=== PATIENT | male | born 1990 | race Caucasian/White ===

== ENCOUNTER 2023-12-31 07:36 | Observation (INO) | payer BC ==
[~2023-12-31] VITALS: Ht 172.7 cm; Wt 97.1 kg
[2023-12-31] VITALS (7 sets, daily range): BP systolic 120–131; BP diastolic 66–74
[2023-12-31] MEDS ORDERED: ondansetron HCL 4 MG/2 ML VIAL IV ONE (08:00)
[2023-12-31] MEDS ORDERED: SODIUM CHLORIDE 0.9% 1,000 ML IV ONE (08:00)
[2023-12-31] MEDS ORDERED: HYDROmorphone HCL 1 MG/ML SYR IV PRN ×2 (08:00→16:15)
[2023-12-31 08:20] LABS: BASOPHILS 0.4 % (0-2); EOSINOPHILS 0.4 % (0-6); HEMATOCRIT 42.2 % (35.0-50.0); HEMOGLOBIN 14.3 g/dL (12.0-18.0); LYMPHOCYTES 8.7 % (24-44); MCH 30.5 (27-36); MCHC 33.9 g/dl (30-36); MONOCYTES 8.3 % (0-12); NEUTROPHILS 82.2 % (39-80); PLATELET COUNT 376 K/uL (140-440); RBC 4.69 M/ul (4.3-5.7)
[2023-12-31 08:49] LABS: ALBUMIN 3.7 g/dL (3.4-5.0); ALBUMIN/GLOBULIN RATIO 0.9 (1.1-2.4); ANION GAP 12.3 (7-21); BILIRUBIN, TOTAL 0.8 ng/dL (0.2-1.0); BUN/CREATININE RATIO 8.73 (6.0-28.6); CALCIUM 9.1 mg/dL (8.5-10.1); CREATININE, SERUM 1.26 mg/dL (0.70-1.30); POTASSIUM 4.3 mmol/L (3.5-5.1); PROTEIN, TOTAL 7.8 g/dL (6.4-8.2)
[2023-12-31] MEDS ORDERED: CIPROFLOXACIN/D5W 400 MG IV ONE (09:30)
[2023-12-31] MEDS ORDERED: ondansetron HCL 4 MG/2 ML VIAL IV PRN ×2 (09:45→16:15)
[2023-12-31] MEDS ORDERED: SODIUM CHLORIDE 0.9% 1,000 ML IV SCH (09:45)
[2023-12-31] MEDS ORDERED: CEFEPIME HCL/D5W 1 GM/100 ML PIGGYBACK IV SCH ×2 (10:00→14:00)
--- NOTE | 2023-12-31 11:14 | NUR ---
PT ARRIVES TO MED-SURG ROOM 123 AT 1111. BEDSIDE REPORT RECEIVED FROM KEVYN RENE. PT AWAKE AND ALERT, S/O AT BEDSIDE. IV IN PLACE TO RAC, C/D/I, NO REDNESS OR LEAKING NOTED, CEFEPIME INFUSION VIA PUMP. PT REPORTS 3/10 RLQ PAIN, ACHING, TOLERABLE AT THIS TIME, PAIN GOAL 4/10.
--- NOTE | 2023-12-31 13:21 | EKG ---
[facility] [address] [place] [place] [address] Signed Normal sinus rhythm Minimal voltage criteria for LVH, may be normal variant ( R in aVL ) Borderline ECG No previous ECGs available Confirmed by NIR SAVAGE MD ([id number]) on 12/31/2023 1:21:12 PM Electronically Signed By: NIR SAVAGE 12/31/23 1321 PATIENT NAME: AUDREYSARAHY Electrocardiogram DATE OF : [birth year] PHYSICIAN: NIR SAVAGE REPORT #: [id number] REPORT IS CONFIDENTIAL AND NOT TO BE RELEASED WITHOUT AUTHORIZATION
--- NOTE | 2023-12-31 13:31 | NUR ---
VISITED DURING SPIRITUAL CARE ROUNDS. PT DENIED IMMEDIATE NEEDS. NURSE ORTHO LISTENED EMPATHETICALLY, PROVIDED SUPPORTIVE PRESENCE, PRAYER. PT EXPRESSED GRATITUDE.
--- NOTE | 2023-12-31 13:35 | NUR ---
Spoke with pt. He states he lives in [place]
--- NOTE | 2023-12-31 14:35 | NUR ---
[place] CL[place] [facility] [place] DIVERTICULITIS GUIDELINE [facility] PPO OBS 01/03/24 @ 1041 ORDER MATCHES STATUS. AUTH PENDING. WILL SEND CLINICALS IF REQUESTED. PLAN TO DC TO HOME WHEN STABLE. 01/01/24
--- NOTE | 2023-12-31 15:20 | NUR ---
PT RESTS IN BED, AWAKE AND ALERT, ON CELL PHONE. DENIES ANY REQUESTS AT THIS TIME. CALL LIGHT IN REACH. PT ENCOURAGED TO USE CALL LIGHT FOR ANY NEEDS.
[2023-12-31] MEDS ORDERED: ENOXAPARIN SODIUM 40 MG/0.4 ML SYR SUB-Q SCH (16:04)
[2023-12-31] MEDS ORDERED: HYDROCODONE/ACETA 5/325 TAB PO PRN (16:15)
[2023-12-31] MEDS ORDERED: PROCHLORPERAZINE EDISYLATE 10 MG/2 ML VIAL IV PRN (16:15)
[2023-12-31] MEDS ORDERED: DEXTROSE 5% - LACTATED RINGERS 1,000 ML IV SCH (16:15)
[2023-12-31] MEDS ORDERED: ACETAMINOPHEN 500 MG TAB PO PRN (16:15)
--- NOTE | 2023-12-31 16:56 | NUR ---
PT AWAKE AND ALERT, REPORTS PAIN TOLERABLE. ICE APPLIED TO SITE. SCDS APPLIED TO BLE. DISCUSSED POC WITH PT. NO QUESTIONS AT THIS TIME.
--- NOTE | 2023-12-31 17:16 | NUR ---
PT SITS UP IN RECLINER, EATS DINNER, WISHES TO REMOVE O2 NC, ROOM AIR TRIAL STARTED. CALL LIGHT IN REACH. IS PROVIDED, EDUCATION ON USE OF IS PROVIDED, PT VERBALIZES UNDERSTANDING.
--- NOTE | 2023-12-31 19:10 | NUR ---
Pt back to bed after using the bathroom, voided, not measured. IVF infusing. pt denies abd pain or n/v. In bed watchng tv,
--- NOTE | 2023-12-31 20:10 | NUR ---
Sitting edge of bed, SCD's off at his request at this time. Alert andorineted, no c/o abd pain, ice to abd. IVF infusing w/o problems. cooperative with vitals and assessment. IS at bedside, return demonstration done several times, temp 99.9 o,
[2023-12-31] MEDS ORDERED: CEFEPIME HCL/D5W 2 GM/100 ML PIGGYBACK IV SCH (21:00)
[2024-01-01] VITALS (10 sets, daily range): BP systolic 113–138; BP diastolic 63–71
--- NOTE | 2024-01-01 00:45 | NUR ---
Resting, eyes closed, no distress, IVF infusing w/o problems, no c/o pain
--- NOTE | 2024-01-01 01:59 | NUR ---
RESTING, EYES CLOSED, NO S/SX PAIN OR REEP DISTRESS, IVF INFUSING W/O PROBLEMS, NO C/O ADVERSE REACTION TO ABX. AWAKENS EASILY. COOPERATIVE WITH VITALS AND SECOND ASSESSMENT, DENIES C/O ABD PAIN AT THIS TIME GOES BACK TO SLEEP RIGHT AWAY,
--- NOTE | 2024-01-01 03:25 | NUR ---
RESTING, EYES CLOSED, NO C/O ABD PAIN, NO N/V. IVF AND IV ABX INFUSING W/O PROBLEMS, TOLERATING WELL. TURNS AND REPOSITIONS SELF IN BED
--- NOTE | 2024-01-01 05:13 | NUR ---
Pt resting, eyes closed, on room air, turns and repositions self in bed. IVF/abx infusing. No c/o abd pain or n/v.
[2024-01-01 05:27] LABS: BASOPHILS 0.4 % (0-2); EOSINOPHILS 2.3 % (0-6); HEMATOCRIT 36.6 % (35.0-50.0); HEMOGLOBIN 12.5 g/dL (12.0-18.0); MCH 30.7 (27-36); MCHC 34.1 g/dl (30-36); MCV 89.9 fl (81-99); MONOCYTES 10.3 % (0-12); PLATELET COUNT 329 K/uL (140-440); RBC 4.08 M/ul (4.3-5.7); RDW 12.9 (10.5-15.0)
[2024-01-01 05:40] LABS: ANION GAP 6.3 (7-21); BUN/CREATININE RATIO 5.51 (6.0-28.6); CALCIUM 8.9 mg/dL (8.5-10.1); CREATININE, SERUM 1.27 mg/dL (0.70-1.30); MAGNESIUM 2.3 mg/dL (1.8-2.4); PHOSPHORUS, INORGANIC 3.5 mg/dL (2.5-4.9); POTASSIUM 4.3 mmol/L (3.5-5.1)
--- NOTE | 2024-01-01 06:48 | CONS ---
[facility] [address] [place], [place] [address] Signed DATE OF CONSULTATION: 12/31/2023 CHIEF COMPLAINT: Right lower quadrant abdominal pain. HISTORY OF PRESENT ILLNESS: Sourav is a 33-year-old gentleman, otherwise healthy, who works heavy construction/excavation. He developed right lower quadrant abdominal pain about four days ago. He has had some nausea. He did not think it was getting worse, but it was not getting any better. He came to the emergency room for evaluation. His white count was elevated and he is tender in the right lower quadrant. The CT scan showed what looks like a perforated cecal diverticulum with some extensive inflammatory changes. The radiologist states the appendix is normal. There is a trace amount of free air. Of course, the terminal ileum is secondarily inflamed. There is no abscess. He was given cefepime and Flagyl. I was asked to admit him as a local general surgeon on-call. PAST MEDICAL HISTORY: None. PAST SURGICAL HISTORY: None. SOCIAL HISTORY: He does not smoke or drink. He has one daughter, but he has a girlfriend who is . 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 His primary care provider had retired but Dr. Barrington Sullivan took over that practice. His mother is Reddy Call at [phone]. FAMILY HISTORY: Mom has diabetes. REVIEW OF SYSTEMS: He had 10 systems reviewed and he said he had no issues. There is no metal in his body. No previous broken bones. ALLERGIES: None. MEDICATIONS: None. PHYSICAL EXAMINATION: VITAL SIGNS: His blood pressure is 120/74, his heart rate is 90, respiratory rate is Electronically Signed By: KELLIE HICKMAN MD 01/01/24 0648 PATIENT NAME: SOURAV VENTURA CONSULTATION DATE OF : [birth year] REPORT #: [id number] PHYSICIAN: KELLIE HICKMAN MD PCP: NO PRIMARY CARE PHYSICIAN REPORT IS CONFIDENTIAL AND NOT TO BE RELEASED WITHOUT AUTHORIZATION [facility] [address] [place], [place] [address] Signed 21, his temperature is 98.1 he is 99% on room air. He is 5 feet 8 inches tall at 97 kg with a body mass index of 35. GENERAL: Sourav is a 33-year-old gentleman lying supine semi-recumbent in his hospital bed, watching TV. He does not appear systemically ill or toxic. LUNGS: Clear to auscultation bilaterally. HEART: Regular rate and rhythm without murmurs. ABDOMEN: Soft and flat but he is tender to moderate to deep palpation in the right lower quadrant. LABORATORY DATA: His white blood count 16.6, hemoglobin 14. Electrolytes are unremarkable. Lactic acid was 0.9. Liver function tests are negative. Albumin 3.7. His blood cultures are pending. RADIOGRAPHIC STUDIES: CT scan of abdomen and pelvis is reviewed along with the report. He has extensive inflammatory changes around the cecum attributed to cecal diverticulum with some trace amount air. There is no abscess. The radiologist states the appendix is normal. ASSESSMENT AND PLAN: Sourav is a 33-year-old gentleman who presents with what appears to be a perforated cecal diverticulum. He has been admitted, started on antibiotics and IV fluids. We will go ahead and add some clear liquids. We will repeat the blood work in the morning. Hopefully this will settle down. He understands that it could require surgery if it does not improve with antibiotics. He has expressed understanding and agrees with the above plan. Kellie Hickman MD ALB/MODL /[id number] cc: MD Kellie Rojas MD Copies: BARRINGTON SULLIVAN DMD Electronically Signed By: KELLIE HICKMAN MD 01/01/24 0648 PATIENT NAME: SOURAV VENTURA CONSULTATION DATE OF : [birth year] REPORT #: [id number] PHYSICIAN: KELLIE HICKMAN MD PCP: NO PRIMARY CARE PHYSICIAN REPORT IS CONFIDENTIAL AND NOT TO BE RELEASED WITHOUT AUTHORIZATION [facility] [address] [place] [id number] Signed KELLIE HICKMAN MD ~ Electronically Signed By: KELLIE HICKMAN MD 01/01/24 0648 PATIENT NAME: SOURAV VENTURA CONSULTATION DATE OF : [birth year] REPORT #: [id number] PHYSICIAN: KELLIE HICKMAN MD PCP: NO PRIMARY CARE PHYSICIAN REPORT IS CONFIDENTIAL AND NOT TO BE RELEASED WITHOUT AUTHORIZATION
--- NOTE | 2024-01-01 07:52 | NUR ---
Patient awake, alert and oriented x4. Patient denies abdominal pain and nausea. IV fluids/abx infusing at this time. Personal supplies and call light within reach.
--- NOTE | 2024-01-01 10:09 | NUR ---
VISITED DURING SPIRITUAL CARE ROUNDS. PT SITTING UP ON SIDE OF BED, EXPRESSED INCREASING LEVELS OF BOREDOM; DECLINED OFFERS OF PUZZLE BOOKS, COLORING BOOKS, PLAYING CARD, STATED "DOING OK." ENDING MACHINE OPERATOR PROVIDED SUPPORTIVE PRESENCE, HOSPITALITY, PRAYER. PT EXPRESSED GRATITUDE.
--- NOTE | 2024-01-01 10:56 | NUR ---
UR OBS REVIEW: [facility] [place] ONLY [facility] OBS 12/31/23 @ 0738 CLINICAL REQUEST RECVD,CLINICAL SENT TO [facility] DISCHARGE PENDING FURTHER REVIEW OF THE CT SCAN PER 01/02/24
--- NOTE | 2024-01-01 10:57 | NUR ---
THIS MORNING AFTER I DID HIS VITALS I ASKED HIM IS THERE ANYTHING ELSE HE NEEDS AND HE SAID YES SOME MORE ICE WATER. ALSO ASKED HIM IF HE WOULD LIKE TO TAKE A SHOWER TODAY HE SAID MAYBE. WILL CHECK BACK IN LATER.
--- NOTE | 2024-01-01 11:00 | NUR ---
Spoke with Sourav. He denies needs. Remains on clr liquid diet. Documentation from shows pt is improving. Pt plans on dc to home when cleared medically.
[2024-01-01 11:28] LABS: BILIRUBIN, URINE NEGATIVE (negative); BLOOD/HGB, URINE NEGATIVE (Negative); KETONE, URINE NEGATIVE (Negative); LEUK ESTERASE, URINE NEGATIVE (negative); NITRITE, URINE NEGATIVE (negative); PH, URINE 6.5 (5-7)
--- NOTE | 2024-01-01 15:06 | NUR ---
Patient awake, alert and oriented x4, no distress. Patient denies nausea/pain at this time. Abdomen is soft to light palpation, postive bowel tones x4 quadrants. Patient denies needs. IV fluids infusing per provider order.
--- NOTE | 2024-01-01 17:26 | NUR ---
Patient awake sitting up in bed, no distress. Family at bedside. Patient reports he is hungry for "real food", currently on clear liquid diet per provider. Jello and fresh water provided to patient at this time. Patient denies needs at this time. Personal supplies and call light within reach.
--- NOTE | 2024-01-01 19:29 | NUR ---
REPORT RECEIVED FROM DAY RN. PATIENT AMBULATING IN ROOM INDEPENDENTLY. IVF INFUSING WITH NO ISSUES OR CONCERNS. DENEIS ANY NEEDS AT THIS TIME. CALL LIGHT WITHIN REACH.
--- NOTE | 2024-01-01 21:43 | NUR ---
IV PUMP ALARMING. ABX INFUSSION COMPLETED. SCHEDULED ABX STARTED. IV SITE REMAIN PATIENT. LUNGS CTA, BOWEL TONES ACTIVE X 4. PATIENT DENIES ANY NAUSEA OR VOMITING. REPORTS HE HAD A BM THIS AM. DENIES ANY PAIN TO HIS ABDOMEN. FRESH ICE WATER GIVEN. VITALS STABLE. NO FURTHER NEEDS AT THIS TIME. CALL LIGHT WITHIN REACH.
--- NOTE | 2024-01-01 23:08 | NUR ---
PATIENT RESTING IN BED WITH EYES CLOSED. RESPIRATIONS EVEN AND UNLABORED. PATIENT LAYING ON HIS RIGHT SIDE. IVF INFUSING WITH NO ISSUES OR COCNERNS. CALL LIGHT WITHIN REACH.
--- NOTE | 2024-01-02 01:31 | NUR ---
PATIENT RESTING IN BED WITH EYES CLOSED. RESPIRATIONS EVEN AND UNLABORED. CALL LIGHT WITHIN REACH.
--- NOTE | 2024-01-02 03:30 | NUR ---
PATIENT RESTING IN BED WITH EYES CLOSED. RESPIRATIONS EVEN AND UNLABORED. CALL LIGHT WITHIN REACH.
[2024-01-02 05:31] VITALS: BP 123/66
--- NOTE | 2024-01-02 05:31 | NUR ---
PATIENT OUT OF BED AMBULATED TO BATHROOM, INDEPENDENT IN ROOM. VSS. BOWEL TONES ACTIVE X 4 QUADRANTS, DENIES ANY NAUSEA OR ABD PAIN THIS AM. REPORTS PASSING GAS. IVF INFUSING WITH NO ISSUES OR CONCERNS. FRESH ICE WATER GIVEN. CALL LIGHT WITHIN REACH.
[2024-01-02 05:32] VITALS: BP 123/66
--- NOTE | 2024-01-02 07:48 | NUR ---
Patient awake in bed, alert and oriented x4, no distress. Patient reports he is feeling much better today, no pain/nausea. Patient is aware Dr. Hollins has written orders for discharge.
--- NOTE | 2024-01-02 08:04 | DS ---
[facility] [address] [place], [place] [address] Signed ADMISSION DATE: 12/31/2023 DISCHARGE DATE: 01/02/2024 FINAL DIAGNOSIS: Cecal diverticulitis. PROCEDURES: CT scan of abdomen and pelvis. 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 He developed four days of right lower quadrant abdominal pain that was not improving. He finally came to the emergency room for evaluation. He had tenderness in the right lower quadrant with an elevated white blood cell count. A CT scan confirmed a cecal diverticulitis with a trace amount of air. The appendix was actually separate from this area and normal. There was no abscess. He had quite a bit of inflammation in the area. I actually reviewed that with our radiologist and myself and it is quite obvious the appendix is separate from his diverticular process. I have been asked to admit him as a general surgeon on-call. HOSPITAL COURSE: Sourav was admitted as above and was placed on clear liquid diet with IV fluids along with his cefepime and Flagyl. By the morning he had reduced his white count to normal. The pain in the right lower quadrant was almost gone. He was having plenty of urine output. By the next day, he had no pain whatsoever. He continued to tolerate his liquid diet. As expected, Sourav was anxious to be discharged and return to work. DISCHARGE PLANS AND MEDICATIONS: I brought [employer] brochure on diverticulitis. We looked at it page by page. I circled the sections relevant to him. I circled the cecum and explained that to him in detail. We also reviewed the need for a colonoscopy in the weeks ahead. He will come back in my office in about 10 to 14 days. We are going to give him a full 10 days of antibiotics to include Augmentin 500 mg one p.o. b.i.d. and Flagyl 500 mg one p.o. t.i.d. He can use Tylenol, ibuprofen or Aleve as needed for pain. This can be purchased [id number]. I reviewed with him a low fiber diet. He should do that for couple of weeks or so and then switch over to a regular diet after that. He said he is very anxious to return to work tomorrow as he gets paid by the hour. Unfortunately, that does create some back pressure working on equipment, but he told me he is in need of income. He is well aware if this would cause him any further issues, he would need resection of that portion of his intestine. That would actually put him at work for a couple of months. Outside of that, he is welcome to perform his activities of daily Electronically Signed By: KELLIE HICKMAN MD 01/02/24 0804 PATIENT NAME: SOURAV VENTURA DISCHARGE SUMMARY DATE OF : [birth year] REPORT #: [id number] PHYSICIAN: KELLIE HICKMAN MD PCP: NO PRIMARY CARE PHYSICIAN REPORT IS CONFIDENTIAL AND NOT TO BE RELEASED WITHOUT AUTHORIZATION [facility] [address] [place], [place] [address] Signed living including walking up and downstairs and showering and bathing as usual. Again, he is going to come and see me in the office about 10, 14 days. He has expressed understanding and agrees with above plan. Kellie Hickman MD ALB/MODL /[id number] cc: Patient chart Barrington Sullivan MD Copies: BARRINGTON SULLIVAN DMD ~ Electronically Signed By: KELLIE HICKMAN MD 01/02/24 0804 PATIENT NAME: SOURAV VENTURA LAMINE DISCHARGE SUMMARY DATE OF : [birth year] REPORT #: [id number] PHYSICIAN: KELLIE HICKMAN MD PCP: NO PRIMARY CARE PHYSICIAN REPORT IS CONFIDENTIAL AND NOT TO BE RELEASED WITHOUT AUTHORIZATION
[2024-01-02] MEDS ORDERED: AUGMENTIN 500-1 EACH PO (08:19)
[2024-01-02] MEDS ORDERED: METRONIDAZOLE500 MG PO (08:20)
[2024-01-02] MEDS ORDERED: TYLENOL EXTRA500 MG PO (08:20)
--- NOTE | 2024-01-02 09:18 | NUR ---
PATIENT IS WANTING TO GO HOME. HE TOLERATED A LOW-FIBER BREAKFAST WELL. I GAVE HIM A HANDOUT ON LOW-FIBER NUTRITION THERAPY. EDUCATED PATIENT ON FOODS RECOMMENDED ON A LOW-FIBER DIET AND FOODS TO AVOID ON A LOW-FIBER DIET. HE ONLY LIKES CORN AND PEAS FOR VEGGIES BUT THEY ARE NOT ALLOWED RIGHT NOW. EXPLAINED THAT THIS DIET IS TEMPORARY TO ALLOW THE GUT TO HEAL. HE HAS GOOD UNDERSTANDING. NO QUESTIONS AT THIS TIME. MY NAME AND OFFICE # ARE ON THE HANDOUT IN CASE HE HAS A QUESTION LATER.
== END 2024-01-02 09:55 | disposition home or self-care (01) ==
LOC: ED 07:36 → MS 07:38
PROVIDERS: Emergency Medicine; ADMIT Colon & Rectal Surgery; ATTEND Colon & Rectal Surgery
DX: K57.32 Diverticulitis of large intestine without perforation or abscess without bleeding (principal)
CPT/HCPCS: 36415; 74177; 80048; 80053; 81003; 83605; 83690; 83735; 84100; 85025; 87040; 93005; 93010; 96365; 96366; 96372; 96375; 96376; 99285-25; G0378; J0692; J1650; J2405; J7030; J7121; Q9967